=== PATIENT | male | born 1930 | race Caucasian/White ===

== ENCOUNTER 2018-03-02 10:07 | Emergency (ER) | payer MEDICARE, OTHER ==
--- NOTE | 2018-03-02 11:28 | RAD ---
LEFT HAND THREE VIEWS: History: Pain. FINDINGS: There is mild soft tissue swelling. Osteoarthritic changes involving the first and second distal inte rphalangeal joint spaces. No fracture. No cortical irregularity or periosteal reaction. 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 POS: C
== END 2018-03-02 12:18 | disposition home or self-care (01) ==
LOC: MADERS 10:07
DX: S63.92XA Sprain of unspecified part of left wrist and hand, initial encounter (principal); M10.9 Gout, unspecified; E78.5 Hyperlipidemia, unspecified; I10 Essential (primary) hypertension; Z79.899 Other long term (current) drug therapy; X50.1XXA Overexertion from prolonged static or awkward postures, initial encounter